=== PATIENT | male | born 1990 | race African-American/Black ===

== ENCOUNTER 2020-10-23 09:13 | Emergency (ER) | payer OTHER, SELFPAY ==
[2020-10-23 09:33] VITALS: BP 146/75; PULSE 57; RESP 16; TEMP 36.5; O2SAT 100; BMI 23.3
[2020-10-23] MEDS: Lidocaine HCl 1 % MPF 5 ML VIAL SUBCUT (09:47)
--- NOTE | 2020-10-23 10:25 | ED.WOUNDLAC ---
HPI - Wound/Laceration General Chief Complaint: Wound/Laceration <Etienne Dee NP - Last Filed: 10/28/20 00:51> Stated Complaint: rt hand laceration - work injury <Etienne Dee NP - Last Filed: 10/28/20 00:51> Time Seen by Provider: 10/23/20 09:35 <Etienne Dee NP - Last Filed: 10/28/20 00:51> Source: patient <Etienne Dee NP - Last Filed: 10/28/20 00:51> Mode of arrival: ambulatory <Etienne Dee NP - Last Filed: 10/28/20 00:51> Limitations: no limitations <Etienne Dee NP - Last Filed: 10/28/20 00:51> History of Present Illness HPI narrative: Right hand laceration occurred at work just prior to arrival on a circular saw. States he has a machine as he was working with a saw and accidentally lifted his hand towards a running some causing a superficial laceration to the dorsum of the right hand. States bleeding controlled. No problems with range of motion in the hand or fingers. <Etienne Dee NP - Last Filed: 10/28/20 00:51> Onset (ago): minute(s) <Etienne Dee NP - Last Filed: 10/28/20 00:51> Location: scalp and other (Dorsal right hand) <Etienne Dee NP - Last Filed: 10/28/20 00:51> Extremity Location: right: hand <Etienne Dee NP - Last Filed: 10/28/20 00:51> Place: work <Etienne Dee NP - Last Filed: 10/28/20 00:51> Patient tetanus UTD: No <Etienne Dee NP - Last Filed: 10/28/20 00:51> Context: accidental <Etienne Dee NP - Last Filed: 10/28/20 00:51> Associated symptoms: none <Etienne Dee NP - Last Filed: 10/28/20 00:51> Treatments prior to arrival: bandage and other (Wash wounds and dressing) <JESSE Rebollar Last Filed: 10/28/20 00:51> Related Data Home Medications: Previous Rx's Medication Instructions Recorded cephalexin 500 mg PO BID #14 cap 10/23/20 cephalexin 500 mg PO Q8H 7 Days #21 cap 11/03/20 <Etienne Dee NP - Last Filed: 10/28/20 00:51> Allergies/Adverse Reactions: Allergies Allergy/AdvReac Type Severity Reaction Status Date / Time No Known Allergies Allergy Verified 10/23/20 09:32 <Etienne Dee NP - Last Filed: 10/28/20 00:51> Review of Systems Review of Systems: Constitutional: No Weight loss, No Fever, No Chills, No Night Sweats, No Fatigue, No Malaise ENT/Mouth: Negative Eyes: Negative Cardiovascular: Negative Respiratory: Negative Gastrointestinal: Negative Genitourinary: Negative Musculoskeletal: No joint pain, No Myalgias, No Joint Swelling superficial laceration to the dorsum of the right hand as noted per HPI Skin: No Skin Lesions, No rash Neuro: No Weakness, No Numbness, No Paresthesias, No Loss of Consciousness, No Dizziness, No Headache Psych: Negative Heme/Lymph: Negative Endocrine: Negative <Etienne Dee NP - Last Filed: 10/28/20 00:51> Yes all other systems are reviewed and are negative <Etienne Dee NP - Last Filed: 10/28/20 00:51> [facility] Past Medical History Medical History: Medical History (Updated 11/04/20 @ 00:01 by Preston Yanes) No known health problems <Etienne Dee NP - Last Filed: 10/28/20 00:51> Social History Social History: Social History Smoking Status: Current every day smoker Smoked in Last 30 Days: Yes Use of substances other than those prescribed or required for medical reasons: Yes Substance Use Type: Marijuana Substance Use Frequency: Daily Advance Directives: No Advance Directives Information Provided: No <Etienne Dee NP - Last Filed: 10/28/20 00:51> Physical Exam Vital Signs: Vital Signs: Last Vital Signs Temp 97.7 F 10/23/20 09:33 Pulse 57 10/23/20 09:33 Resp 16 10/23/20 09:33 BP 146/75 H 10/23/20 09:33 Pulse Ox 100 10/23/20 09:33 Body Mass Index 23.3 Reviewed <Etienne Dee NP - Last Filed: 10/28/20 00:51> Vital Signs: Last Vital Signs Temp 97.7 F 10/23/20 09:33 Pulse 57 10/23/20 09:33 Resp 16 10/23/20 09:33 BP 146/75 H 10/23/20 09:33 Pulse Ox 100 10/23/20 09:33 Body Mass Index 23.3 <Tk Dang MD - Last Filed: 11/22/20 16:44> Const: General: cooperative and healthy appearing; No acute distress or intoxicated appearing <Etiennenhan Dee NP - Last Filed: 10/28/20 00:51> Nutritional Appearance: average body habitus <Etiennenhan Dee NP - Last Filed: 10/28/20 00:51> Orientation/consciousness: patient oriented x3 <Etiennenhan Dee NP - Last Filed: 10/28/20 00:51> HENMT: Head: Yes normal to inspection <Etiennenhan Dee NP - Last Filed: 10/28/20 00:51> Ears: hearing grossly normal bilaterally <Etiennenhan Dee NP - Last Filed: 10/28/20 00:51> Eyes: General: appearance normal, both eyes and all related structures <Etienne Dee NP - Last Filed: 10/28/20 00:51> Visual Figueredo: normal visual figueredo by confrontation <Etiennenhan Dee NP - Last Filed: 10/28/20 00:51> Neck: Neck: Yes normal visual inspection, No positive Brudzinski's sign, No positive Kernig's sign and No tender <Etiennenhan Dee NP - Last Filed: 10/28/20 00:51> Thyroid: Thyroid normal <[facility] JESSE Dee - Last Filed: 10/28/20 00:51> Resp: Effort & Inspection: normal respiratory effort <Etienne Dee NP - Last Filed: 10/28/20 00:51> Cardio: Jugular venous distension: no JVD <[facility] JESSE Dee - Last Filed: 10/28/20 00:51> Skin: General skin exam: no rashes or lesions noted <Etiennenhan Dee NP - Last Filed: 10/28/20 00:51> Neuro: General: patient oriented x3 <Etienne Dee NP - Last Filed: 10/28/20 00:51> Extrem: General: Yes normal to inspection <Etienne Dee NP - Last Filed: 10/28/20 00:51> Course Course Course Narrative: Work-related laceration to the dorsum of the right hand without any deep tissue or bony involvement. Laceration extensively cleaned and closed in a sterile fashion using 7 nonabsorbable sutures. Given tetanus vaccination. Given that this occurred at work will follow[facility] and return if any concerns. <Etienne Dee NP - Last Filed: 10/28/20 00:51> I have reviewed the chart <Tk Dang MD - Last Filed: 11/22/20 16:44> Procedures Laceration Laceration 1: Site: hand <Etienne Dee NP - Last Filed: 10/28/20 00:51> Side (If applicable): right <Etienne Dee NP - Last Filed: 10/28/20 00:51> Size (cm): 3 <Etienne Dee NP - Last Filed: 10/28/20 00:51> Description: linear <Etienne Dee NP - Last Filed: 10/28/20 00:51> Depth: simple, single layer <Etienne Dee NP - Last Filed: 10/28/20 00:51> Local Anesthetic: lidocaine 1% <Etienne Dee NP - Last Filed: 10/28/20 00:51> Amount of anesthesia used (mL): 5 <Etienne Dee NP - Last Filed: 10/28/20 00:51> Pre-repair: wound explored, irrigated extensively and extensive debridement (Did have some small plastic particles extensively cleaned. Without any evidence of additional.) <Etienne Dee NP - Last Filed: 10/28/20 00:51> Skin layer closed with: nylon <Etienne Dee NP - Last Filed: 10/28/20 00:51> Size (cm): 4-0 <Etienne Dee NP - Last Filed: 10/28/20 00:51> Number of sutures: 7 <Etienne Dee NP - Last Filed: 10/28/20 00:51> MDM - Wound/Laceration Differential Diagnosis Differential diagnosis: Likely laceration <Etienne Dee NP - Last Filed: 10/28/20 00:51> Medical Records Attestation: I reviewed the patient's medical records. <Etienne Dee NP - Last Filed: 10/28/20 00:51> Lab Data Attestation: I reviewed the patient's lab results. <Etienne Dee NP - Last Filed: 10/28/20 00:51> Discharge Plan Discharge Clinical Impression: Laceration of hand, Spicesemyz-klyqdgq-qhibxyhjz (DTP) vaccination <Etienne Dee NP - Last Filed: 10/28/20 00:51> Patient Disposition: Home, Self-Care <Etienne Dee NP - Last Filed: 10/28/20 00:51> Instructions: Laceration (ED), Tetanus (ED) <Etienne Dee NP - Last Filed: 10/28/20 00:51> Additional Instructions: Keep hand clean and dry for the next 48 hours Cover with dry sterile dressing May apply bacitracin daily May wash hands with soap and water after 2 days Do not submerge her hand under water Keep cover at all times during the day especially in cases where the wound can become contaminated Follow-up with [facility] as discussed Have sutures removed in 10 days Return if any concerns or worsening symptoms Thank you <Etienne Dee NP - Last Filed: 10/28/20 00:51> Prescriptions: New cephalexin 500 mg capsule 500 mg PO BID Qty: 14 RF: 0 No Action cephalexin 500 mg capsule 500 mg PO Q8H 7 Days Qty: 21 RF: 0 <Etienne Dee NP - Last Filed: 10/28/20 00:51> Referrals: [facility] [Provider Group] - 1 week <Etienne Dee NP - Last Filed: 10/28/20 00:51> Stand Alone Forms: Work/School Release <Etienne Dee NP - Last Filed: 10/28/20 00:51> Interventions: ED Discharge Assessment Last Done: 10/23/20 10:48 <Etienne Dee NP - Last Filed: 10/28/20 00:51> Discharge Date/Time: 10/23/20 10:48 <Etienne Dee NP - Last Filed: 10/28/20 00:51>
== END 2020-10-23 10:48 | disposition home or self-care (01) ==
PROVIDERS: Emergency Provider Emergency Medicine
DX: S61.411A Laceration without foreign body of right hand, initial encounter (principal); W31.2XXA Contact with powered woodworking and forming machines, initial encounter; F17.200 Nicotine dependence, unspecified, uncomplicated; F12.90 Cannabis use, unspecified, uncomplicated; Y93.89 Activity, other specified; Y92.9 Unspecified place or not applicable; Y99.0 Civilian activity done for income or pay
CPT/HCPCS: 12001; 90471; 90715; 99283; 99284

== ENCOUNTER 2020-11-03 10:30 | Emergency (ER) | payer OTHER, SELFPAY ==
--- NOTE | ~2020-11-03 | XR_ITS ---
EXAMINATION: XR FINGER, RIGHT CLINICAL INFORMATION: Trauma COMPARISON: None TECHNIQUE: Three views of the right second finger. FINDINGS: Bone alignment is normal. No fracture or dislocation is seen. The joint spaces are normal. There is soft tissue swelling adjacent to the second MCP joint. No radiopaque soft tissue foreign body is seen. XR/XR finger RT min 2V IMPRESSION: No fracture or foreign body seen.
[2020-11-03 10:35] VITALS: BP 115/76; PULSE 84; RESP 16; TEMP 37.1; O2SAT 97
--- NOTE | 2020-11-03 10:39 | ED.WOUNDLAC ---
HPI - Wound/Laceration General Chief Complaint: Wound/Laceration Stated Complaint: SUTURE REMOVAL WORK RELATED 10 23 20 Time Seen by Provider: 11/03/20 10:39 Source: patient Mode of arrival: ambulatory Limitations: no limitations History of Present Illness HPI narrative: 30 y/o male presenting for suture removal of right hand. He sustained his injury on 10/23 at work with a saw. He was prescribed antibiotics but did not take them because he does not have insurance. He states he has some pain and swelling at his wound site (1st MCP) and is unable to make a fist due to pain. He denies fever, chills. He has some slight opening of the wound at one of the suture sites but it is scabbed over and closing. He denies drainage of pus. Onset (ago): week(s) (2) Extremity Location: right: hand (1st MCP) Place: work Patient tetanus UTD: Yes Context: accidental Associated symptoms: pain Related Data Previous Rx's Medication Instructions Recorded cephalexin 500 mg PO BID #14 cap 10/23/20 cephalexin 500 mg PO Q8H 7 Days #21 cap 11/03/20 Allergies Allergy/AdvReac Type Severity Reaction Status Date / Time No Known Allergies Allergy Verified 10/23/20 09:32 Review of Systems Review of Systems: Constitutional: No Fever, No Chills Musculoskeletal: + joint pain, No Myalgias Skin: + Skin Lesions, No rash Neuro: No Weakness, No Numbness Heme/Lymph: No Bruising PMFSH Past Medical History Medical History (Updated 11/03/20 @ 10:42 by PRATEEK Horton) No known health problems Social History Social History Smoking Status: Current every day smoker Smoked in Last 30 Days: Yes Use of substances other than those prescribed or required for medical reasons: Yes Substance Use Type: Marijuana Substance Use Frequency: Daily Advance Directives: No Advance Directives Information Provided: No Physical Exam Vital Signs: Vital Signs: Last Vital Signs Temp 98.7 F 11/03/20 10:35 Pulse 84 11/03/20 10:35 Resp 16 11/03/20 10:35 BP 115/76 11/03/20 10:35 Pulse Ox 97 11/03/20 10:35 Body Mass Index 0.2 Appearance: Alert. Oriented X3. No acute distress. HEENT: normal inspection CVS: Normal heart rate and rhythm. Pulses normal. Respiratory: No respiratory distress. Skin: Skin warm and dry. Normal skin color. Normal skin turgor. No rashes. Extremities: dorsal side of right index MCP joint with swelling and mild erythema, linear wound with sutures in place, scabbing and minor dehinesnse at lateral aspect. Full ROM of all fingers with pain on full flexion of index finger at MCP joit Neuro: Oriented X 3. No motor deficit. No sensory deficit. Course Course Course Narrative: 30 y/o male presenting for suture removal. MCP joint where lac is, is tender and swollen, most consistent with small seroma beneath the surface of the skin. He is able to move flex and extend his finger, doubt septic joint. XR is negative for fracture. He did not take the previously prescribed antibiotics - will resend now and provide goodRx card. He was encouarged to monitor closely for signs of infection and instructed to return to ER if they develop. Stable for d/c. Procedures Procedure Narrative Procedure Narrative: Suture removal 11:30 am wound cleaned with betadine and alcohol swab 7 sutures were removed using forceps and scissors wound edges approximated adequately minor dehiscence of lateral end no drainage of pus swelling of MCP joint noted with full ROM bacitracin applied and sterile dressing. pt tolerated well, no complications Discharge Plan Discharge Clinical Impression: Encounter for removal of sutures Patient Disposition: Home, Self-Care Instructions: Stitches Removal (ED) Additional Instructions: Your x-ray today was negative, no fracture. Use topical bacitracin or neosporin two times per day. Recommend taking the prescribed antibiotics. Take Ibuprofen and/or Tylenol as needed for pain. If you have worsening pain, swelling or develop drainage of pus, fevers or any other concerning symptom come back to the ER for further evaluation. Prescriptions: New cephalexin 500 mg capsule 500 mg PO Q8H 7 Days Qty: 21 RF: 0 No Action cephalexin 500 mg capsule 500 mg PO BID Qty: 14 RF: 0 Discharge Date/Time: 11/03/20 11:48
== END 2020-11-03 11:48 | disposition home or self-care (01) ==
LOC: HO.ED 10:42
PROVIDERS: Emergency Provider Emergency Medicine
DX: Z48.02 Encounter for removal of sutures (principal); S61.411D Laceration without foreign body of right hand, subsequent encounter; W31.2XXD Contact with powered woodworking and forming machines, subsequent encounter; Y99.0 Civilian activity done for income or pay
CPT/HCPCS: 73140; 99283

== ENCOUNTER 2020-12-01 09:35 | Emergency (ER) | payer OTHER, SELFPAY ==
--- NOTE | ~2020-12-01 | XR_ITS ---
EXAMINATION: XR HAND, RIGHT CLINICAL INFORMATION: Purulent drainage from right hand. COMPARISON: 11/03/2020 finger radiographs. TECHNIQUE: PA, lateral, and oblique views of the right hand. FINDINGS: There is no acute fracture or dislocation. The joint spaces are unremarkable. Mild soft tissue swelling is seen at the level of the second metacarpophalangeal joint. No focal abnormality seen. XR/XR hand RT min 3V IMPRESSION: Mild soft tissue swelling at the level of the second metacarpal phalangeal joint without significant interval change. No focal soft tissue or underlying osseous abnormality.
[2020-12-01 09:43] VITALS: BP 144/83; PULSE 84; RESP 14; TEMP 36.7; O2SAT 98; BMI 23.8
--- NOTE | 2020-12-01 10:24 | ED.EXTPRO ---
HPI - Extremity Problem General Chief complaint: Extremity Injury, Upper Stated complaint: finger infection - work related Time Seen by Provider: 12/01/20 09:46 Source: patient Mode of arrival: ambulatory Limitations: no limitations History of Present Illness HPI Narrative: 30-year-old male with no significant past medical history presenting to the ED with complaints of right hand at the proximal aspect of the index with increased tenderness/swelling/purulent drainage and decreased range of motion for the past few days worse today. Patient was seen here on 10/23/2020 and has sutures in place and returned on 11/03/2020 and sutures were removed from the know it appears that the patient had mild soft tissue swelling consistent with small seroma beneath the surface of the skin and he was able to move and flex/extend his finger therefore septic joint was excluded and x-ray was negative for any fractures therefore he was started on Keflex and he reports he took prescription as prescribed and symptoms improved until a few days ago. Denies any new injuries, fevers, inability to move the finger, redness going up the arm or any other symptoms complaints or concerns at this time. MD Complaint: joint swelling and joint paint Onset (ago): day(s) Pain Consistency: constant Location: right Quality: aching and other (Tight sensation) Relieving factors: nothing Exacerbating factors: range of motion Associated symptoms: other (Surrounding redness/soft tissue swelling and purulent drainage) Related Data Previous Rx's Medication Instructions Recorded cephalexin 500 mg PO BID #14 cap 10/23/20 cephalexin 500 mg PO Q8H 7 Days #21 cap 11/03/20 cephalexin 500 mg PO BID 10 Days #20 cap 12/01/20 ibuprofen 800 mg PO Q8H PRN #14 tab 12/01/20 oxycodone-acetaminophen [Percocet] 1 tab PO Q6H PRN #10 tab 12/01/20 sulfamethoxazole-trimethoprim 1 tab PO BID 10 Days #20 tab 12/01/20 [Bactrim DS] Allergies Allergy/AdvReac Type Severity Reaction Status Date / Time No Known Allergies Allergy Verified 10/23/20 09:32 Review of Systems Review of Systems: Constitutional : No changes in activity, No lethargy, No recent prior head injury, No agitation, No increased fussiness ENT/Mouth : No Ear Pain, No Nasal discharge/drainage Eyes: No Eye Pain, No Swelling, No Redness, No Foreign Body, No Vision Changes Cardiovascular : No Chest Pain, No SOB Respiratory : No Cough Gastrointestinal : No Nausea, No Vomiting, No abdominal Pain Genitourinary : No Dysuria, No Urinary Frequency, No Urinary Incontinence, No Urgency, No Flank Pain Musculoskeletal : + joint pain, No neck stiffness, No back pain/injury Skin : No lacerations Neuro : No unsteady gait, No Paresthesias, No Loss of Consciousness, No altered mental status, No Headache Yes all other systems are reviewed and are negative [facility] Past Medical History Attestation statement: The following information was validated with the patient. Medical History No known health problems Social History Social History Smoking Status: Current every day smoker Smoked in Last 30 Days: Yes Use of substances other than those prescribed or required for medical reasons: Yes Substance Use Type: Marijuana Substance Use Frequency: Daily Advance Directives: No Advance Directives Information Provided: No Physical Exam Vital Signs: Vital Signs: Last Vital Signs Temp 98.1 F 12/01/20 09:43 Pulse 84 12/01/20 09:43 Resp 14 12/01/20 09:43 BP 144/83 H 12/01/20 09:43 Pulse Ox 98 12/01/20 09:43 Body Mass Index 23.8 vital signs have been reviewed as normal and appeared to be correct. Blood pressure normal. Heart rate normal. Respiration rate normal. Temperature normal. Oxygen saturation normal. Appearance: Alert. Oriented X3. No acute distress. Head: Normal external exam. Normocephalic. Atraumatic. Eyes: PERRLA. EOMI. Conjunctiva and sclera normal. Eyelids normal. ENT: Pharynx normal. Uvula midline. Moist mucous membranes. Neck: Normal inspection. Neck supple. FROM. No adenopathy. Thyroid Normal. No meningeal signs. No neck mass noted. CVS: Normal heart rate and rhythm. Heart sound normal. Pulses normal throughout. Respiratory: No respiratory distress. Painless inspiration. Back: Full range of motion noted. Skin: Skin warm and dry. Normal skin color. Normal skin turgor. No rashes/lesions/lacerations noted. Extremities: To right hand index finger at the MTP patient has healing wound noted with moderate soft tissue swelling with associated erythema and mild purulent discharge from an opening in the wound. No streaking/fluctuance noted. No laxity noted. Patient has full range of motion of all digits. Not consistent with tenosynovitis or osteomyelitis. Not consistent with abscess. Otherwise all other Extremities exhibit normal range of motion and nontender. Neuro: Oriented X 3. No motor deficit. No sensory deficit. Reflexes normal. Extrem: Right upper extremity: Extremity exam: right hand Course Course Course Narrative: 30-year-old male presenting to the ED with complaints of swelling/redness/purulent drainage and decreased range of motion to right index finger he is status post laceration repair approximately a month and a half ago then sutures were removed and patient was placed on Keflex he reports his symptoms improved although few days ago worsen. On exam patient appears to have a wound with surrounding cellulitis. Not consistent with abscess/osteomyelitis/tenosynovitis. X-ray revealed soft tissue swelling otherwise no other acute processes. Will DC home with antibiotics and symptomatic treatment along with instructions return if any new or worsening symptoms follow-up with primary care provider. Patient understands agrees with this plan. MDM - Extremity (Nontraumatic) Medical Records Attestation: I reviewed the patient's medical records. Imaging Data right hand xray: Attestation: I personally reviewed and interpreted this imaging study as follows: Radiologist's impression: FINDINGS: There is no acute fracture or dislocation. The joint spaces are unremarkable. Mild soft tissue swelling is seen at the level of the second metacarpophalangeal joint. No focal abnormality seen. XR/XR hand RT min 3V IMPRESSION: Mild soft tissue swelling at the level of the second metacarpal phalangeal joint without significant interval change. No focal soft tissue or underlying osseous abnormality. Discharge Plan Discharge Clinical Impression: Wound cellulitis, Cellulitis Patient Disposition: Home, Self-Care Instructions: Wound Infection (ED), Cellulitis (ED) Prescriptions: New sulfamethoxazole-trimethoprim [Bactrim DS] 800-160 mg tablet 1 tab PO BID 10 Days Qty: 20 RF: 0 cephalexin 500 mg capsule 500 mg PO BID 10 Days Qty: 20 RF: 0 ibuprofen 800 mg tablet 800 mg PO Q8H PRN (Reason: pain) Qty: 14 RF: 0 oxycodone-acetaminophen [Percocet] 5-325 mg tablet 1 tab PO Q6H PRN (Reason: pain) Qty: 10 RF: 0 No Action cephalexin 500 mg capsule 500 mg PO BID Qty: 14 RF: 0 cephalexin 500 mg capsule 500 mg PO Q8H 7 Days Qty: 21 RF: 0 Referrals: Ida Guzmán MD [Physician] - 1 week (Follow-up within next week for recheck) Stand Alone Forms: Work/School Release Print Language: Mauritanian
--- NOTE | 2020-12-01 11:06 | PC.NURSE ---
PRATEEK CAMPBELL AND DR WARREN AT BEDSIDE AFTER REVIEW OF XRAYS
== END 2020-12-01 11:37 | disposition home or self-care (01) ==
PROVIDERS: Emergency Provider Emergency Medicine
DX: L03.011 Cellulitis of right finger (principal); L76.34 Postprocedural seroma of skin and subcutaneous tissue following other procedure; F17.200 Nicotine dependence, unspecified, uncomplicated; Z71.6 Tobacco abuse counseling; F12.90 Cannabis use, unspecified, uncomplicated; Z79.899 Other long term (current) drug therapy
CPT/HCPCS: 73130; 99284

== ENCOUNTER → 2020-12-12 10:37 | Outpatient (BNVA) | payer OTHER, SELFPAY | PROVIDERS: Visit Provider Orthopaedic Surgery | DX: S61.411A Laceration without foreign body of right hand, initial encounter (principal) | CPT/HCPCS: 99202 ==

== ENCOUNTER 2024-01-29 11:12 | Outpatient (AMB) | payer OTHER, SELFPAY ==
--- NOTE | 2024-01-29 11:56 | MHC.OFFWIV ---
Intake Vital Signs 01/29/24 11:59 Height 6 ft Weight 217 lb BMI 29.4 BP 140/70 H Blood Pressure Location Rt brachial Position Sitting Pulse 80 Pulse Source Pulse Oximeter Temp 102.4 F H Temp Source Oral Pulse Oximetry (%) 98 Intake Visit Reasons: [employer]/ temp/ left arm swelling (lobby) Intake Note: pt is here for left arm swelling after injecting HGH into arm bought off internet Patient Tobacco Use Status: Current everyday Tobacco user Allergies No Known Allergies Allergy (Verified 01/29/24 12:02) Do you need a note to return to daycare/school/sports/work: Yes HPI HPI Comments History of Present Illness Details This is a 33-year-old male with no stated past medical history presenting for evaluation of pain in his left arm. Patient states that he has been injecting human growth hormone into his left arm 3-4 times a week since October 2023. The patient purchased the HGH on the internet and uses his girlfriend's needles as she is a diabetic. The patient denies any IV drug use. The patient's last injection was on Friday and since that time he has developed pain and redness in his left antecubital fossa at the site of injection, had fevers up to 102.7? and started vomiting 2 days ago. Patient presents diaphoretic and vomiting here in the clinic. Of note, patient is left-hand dominant. 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 Review of Systems Const All systems reviewed & are unremarkable except as noted in HPI and below Denies chills and Reports fever(s) Eyes Reports no additional complaints ENT Reports no additional complaints Card Reports no additional complaints Resp Reports no additional complaints Musc Details: pain in left elbow Skin/Breast Details: pain, swelling and redness left AC Reports as per HPI Neuro Reports no additional complaints Psych Reports no additional complaints Physical Exam Vital Signs: Last Vital Signs BP 140/70 H 01/29/24 11:59 BMI result Body Mass Index 29.4 Const General: cooperative, alert, awake, in distress mild and anxious; No intoxicated appearing Nutritional Appearance: average body habitus Orientation/consciousness: patient oriented x3 Limitations: no limitations Skin Other: there is a 4cm x 2.5cm area of induration distal of the left AC that is erythematous, warm and painful to examination with fluctuance medially. 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 General: patient oriented x3 Extrem Left upper extremity: edema (proximal left forearm); ROM limited (patient unable to fully extend at left olecranon) Psych Appearance: grossly normal Mental Status: mental status grossly normal Insight: Good insight present (Psych) Judgement: Good judgement present (Psych) Assessment & Plan Assessment & Plan (1) Abscess of left forearm: Comment: Patient is febrile with joint involvement and an abscess that warrants further evaluation and possible incision and drainage. Code(s): L02.414 - Cutaneous abscess of left upper limb Plan: Patient will go directly to the ED at [facility] for further evaluation and care. Nia, charge nurse is notified at 12:18 p.m.. Coding Level of Care Code New Pt Level 4 (16723) Diagnoses Abscess of left forearm L02.414 Time Spent (min) 25
[2024-01-29 11:59] VITALS: BP 140/70; PULSE 80; TEMP 39.1; O2SAT 98; BMI 29.4
== END 2024-01-29 12:40 | disposition home or self-care (01) ==
PROVIDERS: Visit Provider Physician Assistant
DX: L02.414 Cutaneous abscess of left upper limb (principal)
CPT/HCPCS: 99204